=== PATIENT | male | born 1955 | race Caucasian/White ===

== ENCOUNTER 2017-06-29 21:47 | Observation (INO) | payer BC ==
--- NOTE | 2017-06-29 22:00 | PDOC ---
History of Present Illness - General Chief Complaint: Pain Stated Complaint: TESTICULAR PAIN Time Seen by Provider: 06/29/17 21:52 - History of Present Illness Initial Comments: This 62-year-old man with a history of hypertension and right sided undescended testis (removed 25 years ago during a hernia surgery) presents with 2-3 day history of left-sided scrotal pain/swelling and bilateral calf pain/swelling. Patient denies dysuria/urinary frequency/hematuria/penile discharge. He has had no previous history of epididymitis/orchitis/prostatitis or urinary tract infection. He has had no fever or chills. Patient states that he has been swimming in a pool more than usual in recent days and thought that was the reason his calves were painful. No history of previous calf pain or swelling. No history of varicose veins or DVT. He denies shortness of breath or chest pain. No recent surgery. No history of malignancy. No recent prolonged travel or other sedentary episode. Nonsmoker. Medications Daily antihypertensive medication (patient unsure of identity) No known ALLERGIES Nonsmoker Social drinker PCP is Dr. Peter Weston Past History - Past Medical History Allergies/Adverse Reactions: Allergies Allergy/AdvReac Type Severity Reaction Status Date / Time No Known Allergies Allergy Verified 08/23/15 17:03 Home Medications: Ambulatory Orders Meclizine HCl [Antivert -] 12.5 mg PO TID #10 tablet 08/23/15 - Surgical History Abdominal Surgery: Yes (HERNIA) - Immunization History Immunization Up to Date: No - Suicide/Smoking/Psychosocial Hx Smoking Status: No Smoking History: Never smoked Number of Cigarettes Smoked Daily: 0 'Breaking Loose' booklet given: 08/23/15 Hx Alcohol Use: No Drug/Substance Use Hx: No Substance Use Type: None Review of Systems - Review of Systems Able to Perform ROS?: Yes Comments:: 12 point review of systems is negative except for what is noted in the history of present illness *Physical Exam - Physical Exam Comments: GENERAL: Adult male, alert and oriented 3, in no acute distress HEAD: Normal with no signs of trauma. EYES: PERRLA, EOMI, sclera anicteric, conjunctiva clear. ENT: Ears normal, nares patent, oropharynx clear without exudates. Dry mucous membranes. NECK: Normal range of motion, supple without lymphadenopathy, JVD, or masses. LUNGS: Breath sounds equal, clear to auscultation bilaterally. No wheezes, and no crackles. HEART:Regular rate and rhythm, normal S1 and S2 without murmur, rub or gallop. ABDOMEN:.normal bowel sounds No guarding,tenderness or rebound.No masses No distention. Scrotum: Mild tenderness/mild edema with tenderness of the epididymis left side EXTREMITIES: Normal range of motion, no edema. No clubbing or cyanosis. No erythema Bilateral mild tenderness bilateral calves; no palpable cords; no popliteal masses NEUROLOGICAL: Cranial nerves II through XII grossly intact. Normal speech. No focal neurological deficits. MUSCULOSKELETAL: Back non-tender to palpation, no CVA tenderness SKIN: Warm, Dry, normal turgor, no rashes or lesions noted. ED Treatment Course - LABORATORY CBC & Chemistry Diagram: 06/30/17 01:45 06/30/17 01:45 Progress Note - Progress Note Progress Note: Scrotal ultrasound interpreted by Dr. Piedra: Increased vascularity of the left epididymis consistent with acute epididymitis. Left-sided varicocele and small left hydrocele also seen. No other acute abnormalities. Bilateral lower extremity Doppler ultrasound interpreted by imaging sales administration specialist: Positive DVT in a left calf vein other deep veins of the left lower extremity are patent. No Brown's cyst. No abnormality seen in the right sided study Medical Decision Making - Medical Decision Making repeat vital signs shows heart rate of 93/minute Clinical presentation consistent with distal left leg (calf) DVT along with acute epididymitis (left side). Patient's PMD is Dr. Peter Weston who does not admit here. [facility]. Patient will be admitted to their service under observation status, for full evaluation and treatment of DVT of the left calf vein/acute epididymitis. 12-lead electrocardiogram performed and interpreted by me. This shows a sinus rhythm at 94/minute. There is one PVC seen on rhythm strip. Otherwise, no arrhythmia seen. Wave forms, intervals and axis are normal. QTc is 440 milliseconds Chest x-ray, PA and lateralmild hyperaeration, otherwise no acute disease process identified *DC/Admit/Observation/Transfer Diagnosis at time of Disposition: Acute epididymitis Left leg DVT Qualifiers: Affected thrombotic vein of extremity: unspecified lower extremity distal vein Chronicity: acute Qualified Code(s): I82.4Z2 - Acute embolism and thrombosis of unspecified deep veins of left distal lower extremity - Discharge Dispostion Condition at time of disposition: Stable Admit: Yes
[2017-06-30 02:20] LABS: BASOPHIL 0.5 % (0-2.0); EOSINOPHIL 2.1 % (0-4.5); MCH 32.2 pg (25.7-33.7); MCHC 34.2 g/dl (32.0-35.9); MEAN CELL VOLUME 94.2 fl (80-96); MEAN PLT VOLUME 7.1 fl (7.5-11.1); NEUTROPHILS 77.4 % (42.8-82.8); PLATELET COUNT 371 K/MM3 (134-434); RDW 12.1 % (11.9-15.9); WHITE BLOOD COUNT 13.7 K/mm3 (4.0-10.0)
[2017-06-30 02:24] LABS: URINE APPEARANCE CLEAR; URINE BILIRUBIN NEGATIVE (NEGATIVE); URINE BLOOD 2+ (NEGATIVE); URINE COLOR LTYELLOW; URINE GLUCOSE (UA) NEGATIVE (NEGATIVE); URINE KETONE NEGATIVE (NEGATIVE); URINE LEUK ESTERASE NEGATIVE (NEGATIVE); URINE NITRITE NEGATIVE (NEGATIVE); URINE PROTEIN NEGATIVE (NEGATIVE); URINE UROBILINOGEN NEGATIVE mg/dL (0.2-1.0)
[2017-06-30 02:26] LABS: INR 1.12 (0.82-1.09); PROTHROMBIN TIME (PATIENT) 12.3 SEC (9.98-11.88)
[2017-06-30 02:29] LABS: URINE MUCUS RARE; URINE RBC 5 /hpf (0-3); URINE WBC 1 /hpf (3-5)
[2017-06-30 02:39] LABS: ALBUMIN 3.7 g/dl (3.4-5.0); ANION GAP 8 (8-16); CALCIUM 8.8 mg/dL (8.5-10.1); CO2 29 mmol/L (21-32); CREATININE 0.6 mg/dL (0.7-1.3); GLUCOSE,RANDOM 114 mg/dL (74-106); SGOT/AST 13 U/L (15-37); SGPT/ALT 27 U/L (12-78)
[2017-06-30 02:40] LABS: ALK PHOS 71 U/L (45-117); BILIRUBIN,TOTAL 0.8 mg/dL (0.2-1.0); TOT PROT 7.3 g/dl (6.4-8.2)
[2017-06-30] MEDS ORDERED: SODIUM CHLORIDE 1,000 ML IV SCH (03:45)
--- NOTE | 2017-06-30 04:12 | HOSP ---
Physical Examination Vital Signs: Vital Signs Temperature 97.9 F 06/29/17 21:50 Pulse Rate 93 H 06/30/17 03:41 Respiratory Rate 14 06/30/17 03:41 Blood Pressure 133/88 06/30/17 03:41 O2 Sat by Pulse Oximetry (%) 96 06/30/17 03:41 Labs: CBC, BMP 06/30/17 01:45 06/30/17 01:45 Hospitalist Encounter Assessment: Got microblog regarding patient Jass for an admission. Case discussed with Dr. Park who mentions that patient came in complaining of left calf pain, patient attributed to recent activity (swimming). In the ED, patient was tachycardic to 116. Labs were significant for a WBC of 13.7. Since patient also complained of scrotal pain, USG of scrotum was done which showed Left epididymitis. Left extremity duplex showed DVT. Admit the patient for Acute epididymitis and treatment of DVT. Med-Surg Observation Lovenox 80 sq BID for DVT Levofloxacin 500mg PO once daily for Epididymitis. Qtc-440 msec. Repeat Labs in am. Case discussed with Dr. Baker Visit type - Emergency Visit Emergency Visit: Yes ED Registration Date: 06/30/17 Care time: The patient presented to the Emergency Department on the above date and was hospitalized for further evaluation of their emergent condition. - New Patient This patient is new to me today: Yes Date on this admission: 06/30/17 - Critical Care Critical Care patient: No
[2017-06-30] MEDS ORDERED: LEVOFLOXACIN 500 MG TABLET (FP) PO SCH ×2 (04:15→05:51)
[2017-06-30] MEDS ORDERED: ENOXAPARIN NA (PORCINE) 100 MG/1 ML DISP.SYRIN SQ ONE (04:17)
[2017-06-30] MEDS: ENOXAPARIN NA (PORCINE) 80 MG/0.8 ML DISP.SYRIN SQ SCH ×2 (04:24→15:48)
[2017-06-30 05:10] VITALS: BMI 25.2
[2017-06-30] MEDS ORDERED: ACETAMINOPHEN 325 MG TABLET (FP) PO ONE (05:13)
[2017-06-30 07:38] LABS: BASOPHIL 0.6 % (0-2.0); EOSINOPHIL 1.8 % (0-4.5); MCH 31.8 pg (25.7-33.7); MCHC 33.4 g/dl (32.0-35.9); MEAN CELL VOLUME 95.2 fl (80-96); MEAN PLT VOLUME 6.8 fl (7.5-11.1); NEUTROPHILS 75.8 % (42.8-82.8); PLATELET COUNT 403 K/MM3 (134-434); RDW 11.6 % (11.9-15.9); WHITE BLOOD COUNT 11.7 K/mm3 (4.0-10.8)
--- NOTE | 2017-06-30 07:58 | HP ---
CHIEF COMPLAINT: left leg pain PCP: Dr Weston HISTORY OF PRESENT ILLNESS: patient is a 62 y/o male wiith a past mast medical history of vertigo, hypertension, and right sided undescended testis (removed 25 years ago during a hernia surgery). Patient reports 3 days of left-sided scrotal pain/swelling and left calf pain. ER course was notable for: (1) ultrasound of left lower extremity + dvt in left calf vein (2) ultrasound of scrotum left sided varicocele, left epididymitis noted (3) wbc 13.7 Recent Travel: none PAST MEDICAL HISTORY: hypertension PAST SURGICAL HISTORY: hernia surgery 25 years ago Social History: resides at home with Smoking: none Alcohol: social Drugs: none Family History: non contributory to this admission Allergies No Known Allergies Allergy (Verified 08/23/15 17:03) HOME MEDICATIONS: Home Medications Medication Instructions Recorded Meclizine HCl [Antivert -] 12.5 mg PO TID #10 tablet 08/23/15 REVIEW OF SYSTEMS CONSTITUTIONAL: Absent: fever, chills, diaphoresis, generalized weakness, malaise, loss of appetite, weight change HEENT: Absent: rhinorrhea, nasal congestion, throat pain, throat swelling, difficulty swallowing, mouth swelling, ear pain, eye pain, visual changes CARDIOVASCULAR: Absent: chest pain, syncope, palpitations, irregular heart rate, lightheadedness , peripheral edema RESPIRATORY: Absent: cough, shortness of breath, dyspnea with exertion, orthopnea, wheezing, stridor, hemoptysis GASTROINTESTINAL: Absent: abdominal pain, abdominal distension, nausea, vomiting, diarrhea, constipation, melena, hematochezia GENITOURINARY: present: left scrotal tenderness Absent: dysuria, frequency, urgency, hesitancy, hematuria, flank pain, genital pain MUSCULOSKELETAL: Present: left calf pain Absent: myalgia, arthralgia, joint swelling, back pain, neck pain SKIN: Absent: rash, itching, pallor HEMATOLOGIC/IMMUNOLOGIC: Absent: easy bleeding, easy bruising, lymphadenopathy, frequent infections ENDOCRINE: Absent: unexplained weight gain, unexplained weight loss, heat intolerance, cold intolerance NEUROLOGIC: Absent: headache, focal weakness or paresthesias, dizziness, unsteady gait, seizure, mental status changes, bladder or bowel incontinence PSYCHIATRIC: Absent: anxiety, depression, suicidal or homicidal ideation, hallucinations. PHYSICAL EXAMINATION Vital Signs - 24 hr 06/30/17 05:46 Temperature 98.4 F Pulse Rate 104 H Respiratory 20 Rate Blood Pressure 129/80 O2 Sat by Pulse 98 Oximetry (%) GENERAL: Awake, alert, and fully oriented, in no acute distress. HEAD: Normal with no signs of trauma. EYES: Pupils equal, round and reactive to light, extraocular movements intact, sclera anicteric, conjunctiva clear. No lid lag. EARS, NOSE, THROAT: Ears normal, nares patent, oropharynx clear without exudates. Moist mucous membranes. NECK: Normal range of motion, supple without lymphadenopathy, JVD, or masses. LUNGS: Breath sounds equal, clear to auscultation bilaterally. No wheezes, and no crackles. No accessory muscle use. HEART: Regular rate and rhythm, normal S1 and S2 without murmur, rub or gallop. ABDOMEN: Soft, nontender, not distended, normoactive bowel sounds, no guarding, no rebound, no masses. No hepatomegaly or splenomegaly. : left scrotal tenderness, + tenderness to the epdimeis MUSCULOSKELETAL: Normal range of motion at all joints. No bony deformities or tenderness. No CVA tenderness. UPPER EXTREMITIES: 2+ pulses, warm, well-perfused. No cyanosis. No clubbing. No peripheral edema. LOWER EXTREMITIES: 2+ pulses, warm, well-perfused. LEFT LOWER EXTREMITY: + 1 edema. left calf tenderness, + homans sign NEUROLOGICAL: Cranial nerves II-XII intact. Normal speech. Normal gait. PSYCHIATRIC: Cooperative. Good eye contact. Appropriate mood and affect. SKIN: Warm, dry, normal turgor, no rashes or lesions noted, normal capillary refill. Laboratory Results - last 24 hr 06/30/17 07:00 WBC 11.7 H RBC 4.09 Hgb 13.0 Hct 39.0 MCV 95.2 MCH 31.8 MCHC 33.4 RDW 11.6 L Plt Count 403 MPV 6.8 L Neutrophils % 75.8 Lymphocytes % 10.2 Monocytes % 11.6 H Eosinophils % 1.8 Basophils % 0.6 ASSESSMENT/PLAN: F/E/N - low sodium diet - replete lytes prn ppx - zantac - lovenox dispo: requires obsv admission Problem List - Problem (1) Acute epididymitis Assessment/Plan: -ultrasound reviewed of scrotum, pt denies any prior history of STI's, reports heterosexual sex with one female patient, will d/c levaquin, start doxy and rocephin for gc coverage - pending gc culture and urine culture - trend fever curve and wbc - will require outpatient urology follow up Code(s): N45.1 - EPIDIDYMITIS (2) Left leg DVT Assessment/Plan: - continue lovenox 80mg bid - appreciate vascular input Code(s): I82.402 - ACUTE EMBOLISM AND THOMBOS UNSP DEEP VEINS OF L LOW EXTREM Qualifiers: Affected thrombotic vein of extremity: unspecified lower extremity distal vein Chronicity: acute Qualified Code(s): I82.4Z2 - Acute embolism and thrombosis of unspecified deep veins of left distal lower extremity (3) Hypertension Assessment/Plan: - patient reports he doesn't take any antihypertensives - b/p at goal strict monitoring Code(s): I10 - ESSENTIAL (PRIMARY) HYPERTENSION Visit type - Emergency Visit Emergency Visit: Yes ED Registration Date: 06/30/17 Care time: The patient presented to the Emergency Department on the above date and was hospitalized for further evaluation of their emergent condition. - New Patient This patient is new to me today: Yes Date on this admission: 06/30/17 - Critical Care Critical Care patient: No
[2017-06-30 08:06] LABS: ALBUMIN 3.5 g/dl (3.5-5.0); ALK PHOS 54 U/L (32-92); ANION GAP 5 (8-16); CALCIUM 8.7 mg/dl (8.4-10.2); CO2 27 mmol/L (22-28); CREATININE 0.6 mg/dl (0.6-1.3); GLUCOSE,RANDOM 116 mg/dl (74-106); SGOT/AST 17 U/L (10-42); SGPT/ALT 20 U/L (10-40); TOT PROT 6.6 g/dl (6.4-8.3)
--- NOTE | 2017-06-30 09:33 | EKG ---
Test Reason : Blood Pressure : / mmHG Vent. Rate : 094 BPM Atrial Rate : 094 BPM P-R Int : 166 ms QRS Dur : 094 ms QT Int : 352 ms P-R-T Axes : 058 -11 033 degrees QTc Int : 440 ms SINUS RHYTHM WITH OCCASIONAL PREMATURE VENTRICULAR COMPLEXES OTHERWISE NORMAL ECG NO PREVIOUS ECGS AVAILABLE Confirmed by ALICIA LINDER MD ([id number] on 06/30/2017 9:32:47 AM Referred By: MD MARIN Confirmed By:ALICIA LINDER MD
[2017-06-30] MEDS ORDERED: HEPARIN NA (PORCINE) 5,000 UNITS/ML 1ML VIAL SQ SCH (10:00)
[2017-06-30] MEDS: DOXYCYCLINE HYCLATE 100 MG CAPSULE PO SCH ×2 (11:30→17:47)
[2017-06-30] MEDS: CEFTRIAXONE 50 ML IVPB SCH (12:00)
--- NOTE | 2017-06-30 15:51 | PN ---
Progress Note (short form) - Note Progress Note: Vascular Surgery Consult -- Dr. Aleksandr Blackburn Asked by Medicine to eval 62 yo male admitted with c/o scrotal pain and left calf pain x 3 days. Found to have a left vericocele & epididymitis on scrotal U /S. A LE U/S confirms + LLE calf DVT. 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 Patient is on Lovenox 80mg BID. Patient denies a smoking history. Denies any trauma to his lower extremity. Denies CP, SOB, palpitations, diaphoresis, hematemesis. Last Vital Signs Temp Pulse Resp BP Pulse Ox 98.2 F 85 18 107/63 98 06/30/17 14:27 06/30/17 14:27 06/30/17 14:27 06/30/17 14:27 06/30/17 14:27 INR, PTT INR 1.12 (0.82-1.09) 06/30/17 01:45 Problem List - Problems (1) Left leg DVT Assessment/Plan: Cont AC therapy for 6 months No surgical intervention needed. Cont care as per primary medical team Above plan discussed with Dr. Blackburn and agrees. On behalf of Dr. Blackburn, thank you for the opportunity to participate in your patient's care Code(s): I82.402 - ACUTE EMBOLISM AND THOMBOS UNSP DEEP VEINS OF L LOW EXTREM Qualifiers: Affected thrombotic vein of extremity: unspecified lower extremity distal vein Chronicity: acute Qualified Code(s): I82.4Z2 - Acute embolism and thrombosis of unspecified deep veins of left distal lower extremity
[2017-07-01] MEDS: ENOXAPARIN NA (PORCINE) 80 MG/0.8 ML DISP.SYRIN SQ SCH (03:30)
[2017-07-01 06:28] VITALS: BP 98/78; PULSE 82; TEMP 98.4
--- NOTE | 2017-07-01 09:05 | DS ---
Physical Exam: SUBJECTIVE: Patient seen and examined, reports less scrotal and left lower extremity pain OBJECTIVE: patient is a 62 y/o male wiith a past mast medical history of vertigo , hypertension, and right sided undescended testis (removed 25 years ago during a hernia surgery). Patient reports 3 days of left-sided scrotal pain/swelling and left calf pain. ER course was notable for: (1) ultrasound of left lower extremity + dvt in left calf vein (2) ultrasound of scrotum left sided varicocele, left epididymitis noted (3) wbc 13.7 Vital Signs Period Temp Pulse Resp BP Sys/Sharpe Pulse Ox Last 24 Hr 98.2 F-99.5 F 82-88 16-20 98-144/63-82 94-99 PHYSICAL EXAM GENERAL: The patient is awake, alert, and fully oriented, in no acute distress. HEAD: Normal with no signs of trauma. EYES: PERRL, extraocular movements intact, sclera anicteric, conjunctiva clear. ENT: Ears normal, nares patent, oropharynx clear without exudates, moist mucous membranes. NECK: Trachea midline, full range of motion, supple. LUNGS: Breath sounds equal, clear to auscultation bilaterally, no wheezes, no crackles, no accessory muscle use. HEART: Regular rate and rhythm, S1, S2 without murmur, rub or gallop. ABDOMEN: Soft, nontender, nondistended, normoactive bowel sounds, no guarding, no rebound, no hepatosplenomegaly, no masses. EXTREMITIES: 2+ pulses, warm, well-perfused, no edema. NEUROLOGICAL: Cranial nerves II through XII grossly intact. Normal speech, gait not observed. PSYCH: Normal mood, normal affect. SKIN: Warm, dry, normal turgor, no rashes or lesions noted. LABS CBC WBC 11.7 K/mm3 (4.0-10.8) H 06/30/17 07:00 RBC 4.09 M/mm3 (4.00-5.60) 06/30/17 07:00 Hgb 13.0 GM/dl (11.7-16.9) 06/30/17 07:00 Hct 39.0 % (35.4-49) 06/30/17 07:00 MCV 95.2 fl (80-96) 06/30/17 07:00 MCH 31.8 pg (25.7-33.7) 06/30/17 07:00 MCHC 33.4 g/dl (32.0-35.9) 06/30/17 07:00 RDW 11.6 % (11.9-15.9) L 06/30/17 07:00 Plt Count 403 K/MM3 (134-434) 06/30/17 07:00 MPV 6.8 fl (7.5-11.1) L 06/30/17 07:00 Neutrophils % 75.8 % (42.8-82.8) 06/30/17 07:00 Lymphocytes % 10.2 % (8-40) 06/30/17 07:00 Monocytes % 11.6 % (3.8-10.2) H 06/30/17 07:00 Eosinophils % 1.8 % (0-4.5) 06/30/17 07:00 Basophils % 0.6 % (0-2.0) 06/30/17 07:00 CMP Sodium 134 mmol/L (136-145) L 06/30/17 07:00 Potassium 3.8 mmol/L (3.5-5.1) 06/30/17 07:00 Chloride 102 mmol/L (98-107) 06/30/17 07:00 Carbon Dioxide 27 mmol/L (22-28) 06/30/17 07:00 Anion Gap 5 (8-16) L 06/30/17 07:00 BUN 11 mg/dl (7-18) 06/30/17 07:00 Creatinine 0.6 mg/dl (0.6-1.3) 06/30/17 07:00 Creat Clearance w eGFR > 60 (>60) 06/30/17 07:00 Random Glucose 116 mg/dl (74-106) H 06/30/17 07:00 Calcium 8.7 mg/dl (8.4-10.2) 06/30/17 07:00 Total Bilirubin 1.0 mg/dl (0.2-1.0) D 06/30/17 07:00 AST 17 U/L (10-42) 06/30/17 07:00 ALT 20 U/L (10-40) 06/30/17 07:00 Alkaline Phosphatase 54 U/L (32-92) 06/30/17 07:00 Total Protein 6.6 g/dl (6.4-8.3) 06/30/17 07:00 Albumin 3.5 g/dl (3.5-5.0) 06/30/17 07:00 HOSPITAL COURSE: (1) Acute epididymitis Assessment/Plan: -ultrasound reviewed of scrotum, pt denies any prior history of STI's, reports heterosexual sex with one female patient, will d/c levaquin, start doxy and rocephin for gc coverage - pending gc culture and urine culture - trend fever curve and wbc - will require outpatient urology follow up Code(s): N45.1 - EPIDIDYMITIS (2) Left leg DVT Assessment/Plan: - continue lovenox 80mg bid - appreciate vascular input Code(s): I82.402 - ACUTE EMBOLISM AND THOMBOS UNSP DEEP VEINS OF L LOW EXTREM Qualifiers: Affected thrombotic vein of extremity: unspecified lower extremity distal vein Chronicity: acute Qualified Code(s): I82.4Z2 - Acute embolism and thrombosis of unspecified deep veins of left distal lower extremity (3) Hypertension Assessment/Plan: - patient reports he doesn't take any antihypertensives - b/p at goal strict monitoring Code(s): I10 - ESSENTIAL (PRIMARY) HYPERTENSION Date of Admission:06/30/17 Date of Discharge: 07/01/17 Minutes to complete discharge: 45 Discharge Summary Reason For Visit: DVT/EPIDIDYMITIS Current Active Problems Acute epididymitis (Acute) Hypertension (Acute) Left leg DVT (Acute) Condition: Stable - Home Medications Comprehensive Discharge Medication List: Ambulatory Orders Meclizine HCl [Antivert -] 12.5 mg PO TID #10 tablet 08/23/15 Problem List - Problems (1) Acute epididymitis Code(s): N45.1 - EPIDIDYMITIS (2) Left leg DVT Code(s): I82.402 - ACUTE EMBOLISM AND THOMBOS UNSP DEEP VEINS OF L LOW EXTREM Qualifiers: Affected thrombotic vein of extremity: unspecified lower extremity distal vein Chronicity: acute Qualified Code(s): I82.4Z2 - Acute embolism and thrombosis of unspecified deep veins of left distal lower extremity (3) Hypertension Code(s): I10 - ESSENTIAL (PRIMARY) HYPERTENSION
[2017-07-01] MEDS: DOXYCYCLINE HYCLATE 100 MG CAPSULE PO SCH (09:38)
[2017-07-01] MEDS: CEFTRIAXONE 50 ML IVPB SCH (09:39)
[2017-07-01] MEDS ORDERED: APIXABAN 5 MG TABLET PO SCH ×2 (10:00→12:00)
== END 2017-07-01 11:15 | disposition home or self-care (01) ==
LOC: FER 21:47 → FM/S 06-30 04:30
PROVIDERS: ADMIT Internal Medicine; ATTEND Nurse Practitioner Family
PROC: 3E013GC Introduction of Other Therapeutic Substance into Subcutaneous Tissue, Percutaneous Approach (ICD-10-PCS; principal; 2017-06-30)
DX: N45.1 Epididymitis (principal); I82.4Z2 Acute embolism and thrombosis of unspecified deep veins of left distal lower extremity; I10 Essential (primary) hypertension; Z87.718 Personal history of other specified (corrected) congenital malformations of genitourinary system
CPT/HCPCS: 36415; 71020-TC; 71275-TC; 76870-TC; 80053; 81003; 81015; 85025; 85610; 87086; 93005; 93970-TC; 99284-25; G0378

== ENCOUNTER 2017-12-05 16:50 | Emergency (ER) | payer BC, OTHER ==
[2017-12-05 19:16] VITALS: BP 158/102; PULSE 84; TEMP 98.6; BMI 27.3
--- NOTE | 2017-12-05 19:21 | PDOC ---
History of Present Illness - General History Source: Patient, Old Records Exam Limitations: No Limitations - History of Present Illness Initial Comments: 12/05/17 19:27 The patient is a 62 year old male with history of hypertension, LLE DVT in 2016 discontinued anticoagulents approximately 2 weeks ago, left heel fracture approximately 4 weeks ago, who presents to the ED complaining of left ankle pain that began this morning. The patient states his pain was at its worst this afternoon, ranked 8/10. His pain interfered with his walking so he came to the ED for evaluation. No calf pain, leg swelling, or shortness of breath. No trauma or injury. No fever or chills. <Amy Wright - Last Filed: 12/05/17 21:25> <Brenna Park - Last Filed: 12/06/17 01:35> - General Chief Complaint: Pain Stated Complaint: LEFT ANKLE PAIN Time Seen by Provider: 12/05/17 19:13 Past History <Amy Wright - Last Filed: 12/05/17 21:25> - Past Medical History COPD: No GI Disorders: Yes HTN: Yes - Surgical History Abdominal Surgery: Yes (HERNIA) - Immunization History Immunization Up to Date: No - Suicide/Smoking/Psychosocial Hx Smoking Status: No Smoking History: Former smoker Have you smoked in the past 12 months: No Number of Cigarettes Smoked Daily: 0 If you are a former smoker, when did you quit?: 2011 Information on smoking cessation initiated: No 'Breaking Loose' booklet given: 08/23/15 Hx Alcohol Use: Yes (OCCASIONAL ONLY) Drug/Substance Use Hx: No Substance Use Type: None <Brenna aPrk - Last Filed: 12/06/17 01:35> - Past Medical History Allergies/Adverse Reactions: Allergies Allergy/AdvReac Type Severity Reaction Status Date / Time No Known Allergies Allergy Verified 08/23/15 17:03 Home Medications: Ambulatory Orders Apixaban [Eliquis -] 5 mg PO BID 07/11/17 Cholecalciferol (Vitamin D3) [Vitamin D3] 1 cap PO DAILY 10/31/17 Cyanocobalamin (Vitamin B-12) [Vitamin B-12] 1 cap PO DAILY 10/31/17 Losartan Potassium 1 tab PO DAILY 10/31/17 Ranitidine HCl 1 cap PO BID 01/22/18 Tamsulosin HCl [Flomax] 1 tab PO DAILY 10/31/17 Review of Systems - Review of Systems Able to Perform ROS?: Yes Comments:: 12/05/17 19:30 All systems are reviewed and negative except as noted in the HPI. <Amy Wright - Last Filed: 12/05/17 21:25> *Physical Exam - Vital Signs Last Vital Signs Temp Pulse Resp BP Pulse Ox 98.6 F 84 16 158/102 97 12/05/17 19:03 12/05/17 19:03 12/05/17 19:03 12/05/17 19:03 12/05/17 19:03 - Physical Exam Comments: 12/05/17 21:25 GENERAL: Awake, alert, and fully oriented, in no acute distress HEAD: No signs of trauma EYES: PERRLA, EOMI, sclera anicteric, conjunctiva clear ENT: Auricles normal inspection, hearing grossly normal, nares patent, oropharynx clear without exudates. Moist mucosa NECK: Normal ROM, supple, no lymphadenopathy, JVD, or masses LUNGS: Breath sounds equal, clear to auscultation bilaterally. No wheezes, and no crackles HEART: Regular rate and rhythm, normal S1 and S2, no murmurs, rubs or gallops ABDOMEN: Soft, nontender, normoactive bowel sounds. No guarding, no rebound. No masses EXTREMITIES: Left lower extremity: Mild edema of the medial and lateral aspects of the ankle. Tenderness just distal to the lateral malleolus. No deformity, ecchymosis or ligamentous instability present. Foot is nonedematous, nontender, with palpable pulses in the midfoot. Intact motor and sensory functioning. There is no tenderness or edema in the knee or calf present. All other extremities: Normal range of motion, no edema. No clubbing or cyanosis. No cords, erythema, or tenderness NEUROLOGICAL: Cranial nerves II through XII grossly intact. Normal speech, normal gait SKIN: Warm, Dry, normal turgor, no rashes or lesions noted. <Amy Wright - Last Filed: 12/05/17 21:25> - Vital Signs Last Vital Signs Temp Pulse Resp BP Pulse Ox 98.6 F 84 16 158/102 97 12/05/17 19:03 12/05/17 19:03 12/05/17 19:03 12/05/17 19:03 12/05/17 19:03 <Brnena Park - Last Filed: 12/06/17 01:35> Progress Note - Progress Note Progress Note: Documentation has been prepared under my direction and personally reviewed by me in its entirety. I attest that this documented accurately reflects all work, treatment, procedures and medical decision making performed by me. <Brenna Park - Last Filed: 12/06/17 01:35> Medical Decision Making - Medical Decision Making 12/05/17 20:15 Left foot/ankle x-ray, read and reviewed by Dr. Alanis, demonstrates no evidence of fracture or acute pathology. <Amy Wright - Last Filed: 12/05/17 21:25> - Medical Decision Making No evidence of DVT on Doppler duplex ultrasound study of the left lower extremity. Clinical presentation most consistent with left ankle sprain. Otis wrap applied to the left ankle. He should continue to use Otis wrap for the next 2-3 days Patient should not work tomorrow and elevate/ice the left ankle as much as possible Patient takes Tylenol for pain; he should continue this as needed Dr. Adkins had taken care of the patient when he had calcaneus fracture in 2013. Follow-up information provided for the patient for reevaluation with orthopedics if he has persistent pain/swelling in the left ankle <Brenna Park - Last Filed: 12/06/17 01:35> *DC/Admit/Observation/Transfer - Attestations Scribe Attestion: 12/05/17 19:31 Documentation prepared by Amy Wright, acting as certified medical records coder for Brenna Park MD. <Amy Wright - Last Filed: 12/05/17 21:25> <Brenna Park - Last Filed: 12/06/17 01:35> Diagnosis at time of Disposition: Ankle sprain Qualifiers: Encounter type: initial encounter Involved ligament of ankle: posterior talofibular ligament Laterality: left Qualified Code(s): S93.492A - Sprain of other ligament of left ankle, initial encounter - Discharge Dispostion Disposition: HOME Condition at time of disposition: Stable - Referrals Referrals: Crystal Fisher MD [Primary Care Provider] - Venkat Adkins MD [Staff Physician] - 1 week - Patient Instructions Printed Discharge Instructions: DI for Ankle Sprain Additional Instructions: Elevate/ice to left ankle as much as possible over the next 48 hours No work tomorrow Tylenol as needed for pain Otis wrap during the day (off at night) for the next week Avoid strenuous activities such as excessive walking/running for the next week Follow-up with Dr. Adkins within 5-7 days if you have continued swelling/pain - Post Discharge Activity Forms/Work/School Notes: Back to Work
== END 2017-12-05 22:01 | disposition home or self-care (01) ==
LOC: FER 16:50
DX: S93.492A Sprain of other ligament of left ankle, initial encounter (principal); X58.XXXA Exposure to other specified factors, initial encounter; Y93.89 Activity, other specified; Y92.9 Unspecified place or not applicable; I10 Essential (primary) hypertension; Z87.891 Personal history of nicotine dependence
CPT/HCPCS: 73610-TC-LT-FY; 73630-TC-LT; 93971-TC; 99282-25

== ENCOUNTER 2019-07-17 23:26 | Emergency (ER) | payer BC, OTHER ==
[2019-07-17 23:34] VITALS: BP 138/95; PULSE 105; TEMP 99.5; BMI 150.4
[2019-07-17] MEDS ORDERED: AZITHROMYCIN 500 MG TABLET PO ONE (23:35)
--- NOTE | 2019-07-17 23:37 | PDOC ---
History of Present Illness - General Chief Complaint: Respiratory Stated Complaint: COUGH X 4 DAYS History Source: Patient Exam Limitations: No Limitations - History of Present Illness Is this a multiple visit Asthma Patient?: No Past History - Travel Traveled outside of the country in the last 30 days: No Close contact w/someone who was outside of country & ill: No - Past Medical History Allergies/Adverse Reactions: Allergies Allergy/AdvReac Type Severity Reaction Status Date / Time No Known Allergies Allergy Verified 07/17/19 23:27 Home Medications: Ambulatory Orders Cholecalciferol (Vitamin D3) [Vitamin D3] 1 cap PO DAILY 10/31/17 Cyanocobalamin (Vitamin B-12) [Vitamin B-12] 1 cap PO DAILY 10/31/17 Losartan Potassium 1 tab PO DAILY 10/31/17 Ranitidine HCl 1 cap PO BID 10/31/17 Tamsulosin HCl [Flomax] 1 tab PO DAILY 10/31/17 Azithromycin [Zithromax Tri-Ras (3 DAYS) -] 500 mg PO DAILY #3 tablet 07/17/19 COPD: No DVT: Yes (LEFT LEG) GI Disorders: Yes Disorders: Yes (PROSTATE) HTN: Yes - Surgical History Abdominal Surgery: Yes (HERNIA) - Immunization History Immunization Up to Date: No - Psycho Social/Smoking Cessation Hx Smoking Status: No Smoking History: Never smoked Have you smoked in the past 12 months: No Number of Cigarettes Smoked Daily: 0 If you are a former smoker, when did you quit?: 2011 Information on smoking cessation initiated: No 'Breaking Loose' booklet given: 08/23/15 Hx Alcohol Use: Yes (CASUAL) Drug/Substance Use Hx: No Substance Use Type: None Review of Systems - Review of Systems Constitutional: No: Symptoms Reported, See HPI, Chills, Diaphoresis, Fever, Loss of Appetite, Malaise, Night Sweats, Weakness, Weight Stable, Unintentional Wgt. Loss, Unexplained wgt Loss, Other HEENTM: No: Symptoms Reported, See HPI, Eye Pain, Blurred Vision, Tearing, Recent change in vision, Double Vision, Cataracts, Ear Pain, Ocular Prothesis, Ear Discharge, Nose Pain, Nose Congestion, Tinnitus, Nose Bleeding, Hearing Loss , Throat Pain, Throat Swelling, Mouth Pain, Dental Problems, Difficulty Swallowing, Mouth Swelling, Other Respiratory: Yes: Cough. No: Symptoms reported, See HPI, Orthopnea, Shortness of Breath, SOB with Exertion, SOB at Rest, Stridor, Wheezing, Productive cough, Hemoptysis, Other Cardiac (ROS): No: Symptoms Reported, See HPI, Chest Pain, Edema, Irregular Heart Rate, Lightheadedness, Palpitations, Syncope, Chest Tightness, Other ABD/GI: No: Symptoms Reported, See HPI, Abdominal Distended, Abd. Pain w/ defecation, Blood Streaked Bowels, Constipated, Diarrhea, Difficulty Swallowing , Nausea, Poor Appetite, Poor Fluid Intake, Rectal Bleeding, Vomiting, Indigestion, Abdominal cramping, Tarry Stools, Other *Physical Exam - Vital Signs Last Vital Signs Temp Pulse Resp BP Pulse Ox 99.5 F 105 H 18 138/95 96 07/17/19 23:31 07/17/19 23:31 07/17/19 23:31 07/17/19 23:31 07/17/19 23:31 - Physical Exam General Appearance: Yes: Nourished, Appropriately Dressed. No: Apparent Distress HEENT: positive: EOMI, [place], Normal ENT Inspection, Normal Voice, Symmetrical, TMs Normal, Pharynx Normal Neck: positive: Trachea midline, Normal Thyroid Respiratory/Chest: positive: Normal Breath Sounds, Rhonchi, Wheezing. negative : Chest Tender, Lungs Clear, Respiratory Distress Cardiovascular: positive: Regular Rhythm, Regular Rate, S1, S2. negative: Edema Gastrointestinal/Abdominal: positive: Normal Bowel Sounds, Flat, Soft Musculoskeletal: positive: Normal Inspection Extremity: positive: Normal Capillary Refill, Normal Inspection Integumentary: positive: Normal Color, Dry, Warm Neurologic: positive: bi tri operator II-XII NML intact, Fully Oriented, Alert, Normal Mood/ Affect, Normal Response, Motor Strength 5/5 ED Treatment Course - RADIOLOGY Radiology Studies Ordered: Category Date Time Status CHEST PA & LAT [RAD] Stat Radiology 07/17/19 23:35 Ordered Discharge - Discharge Information Problems reviewed: Yes Clinical Impression/Diagnosis: Atypical pneumonia Condition: Stable Disposition: HOME - Additional Discharge Information Prescriptions: Azithromycin [Zithromax Tri-Ras (3 DAYS) -] 500 mg PO DAILY #3 tablet - Follow up/Referral - Patient Discharge Instructions Patient Printed Discharge Instructions: DI for Atypical Pneumonia - Post Discharge Activity
[2019-07-17] MEDS ORDERED: DEXAMETHASONE LIQUID 0.5 MG/5 ML PO ONE (23:38)
[2019-07-17] MEDS ORDERED: DEXAMETHASONE SOD PHOSPHATE 10 MG/1 ML VIAL ONE (23:43)
[2019-07-17] MEDS ORDERED: AZITHROMYCIN 250 MG TABLET ONE (23:43)
[2019-07-18] MEDS ORDERED: ALBUTEROL SO4 2.5/IPRATROPIUM 0.5 INH SOL 3 ML VIAL.NEB. NEB ONE ×2 (00:04)
[2019-07-18] MEDS ORDERED: CEFTRIAXONE 1 GM in DEXTROSE 5%-WATER - 100 ML IVPB ONE (00:06)
[2019-07-18] MEDS ORDERED: SODIUM CHLORIDE 0.9% 500 ML INFUS.BAG IV ONE (00:06)
[2019-07-18] MEDS ORDERED: cefTRIAXone SODIUM 1 GM VIAL ONE (00:07)
== END 2019-07-18 01:10 | disposition home or self-care (01) ==
LOC: FER 23:26
PROC: 3E0F7GC Introduction of Other Therapeutic Substance into Respiratory Tract, Via Natural or Artificial Opening (ICD-10-PCS; principal; 2019-07-17)
PROC: 3E03329 Introduction of Other Anti-infective into Peripheral Vein, Percutaneous Approach (ICD-10-PCS; 2019-07-17)
PROC: 3E0337Z Introduction of Electrolytic and Water Balance Substance into Peripheral Vein, Percutaneous Approach (ICD-10-PCS; 2019-07-17)
DX: J18.8 Other pneumonia, unspecified organism (principal); Z87.891 Personal history of nicotine dependence; I10 Essential (primary) hypertension; Z86.718 Personal history of other venous thrombosis and embolism; N40.0 Benign prostatic hyperplasia without lower urinary tract symptoms; K92.9 Disease of digestive system, unspecified
CPT/HCPCS: 71046-TC-FY; 99281-25